=== PATIENT | female | born 1960 | race Caucasian/White ===

== ENCOUNTER 2016-07-23 09:01 | Outpatient (CLI) | payer OTHER ==
[~2016-07-23 09:01] MED LIST: BISA5ECT2 PO; CYCL-405 PO; ELA25 PO; GABA300C PO; IBUP-1842 PO; LOVA10TA27 PO; METO25TA PO; OMEP40EC1 PO; OXYC1TAB PO; SERT50TA PO
== END 2016-07-23 19:50 | disposition home or self-care (01) ==
LOC: MRD 09:01
PROVIDERS: ATTEND Surgery
PROC: BW24ZZZ Computerized Tomography (CT Scan) of Chest and Abdomen (ICD-10-PCS; principal; 2016-07-23)
PROC: BW21ZZZ Computerized Tomography (CT Scan) of Abdomen and Pelvis (ICD-10-PCS; principal; 2016-07-23)
DX: K46.9 Unspecified abdominal hernia without obstruction or gangrene (principal)
CPT/HCPCS: 71250

== ENCOUNTER 2016-09-03 09:51 | Outpatient (CLI) | payer OTHER | END 2016-09-03 21:00 | disposition home or self-care (01) | LOC: MRD 09:51 | PROVIDERS: ATTEND Surgery | DX: R10.9 Unspecified abdominal pain (principal); R14.0 Abdominal distension (gaseous) | CPT/HCPCS: 74249 ==

== ENCOUNTER 2018-02-24 11:54 | Inpatient (IN) | payer OTHER ==
[~2018-02-24] VITALS: Ht 157.5 cm; Wt 98.9 kg
[2018-02-24 12:26] VITALS: BP 92/51
--- NOTE | 2018-02-24 12:42 | NUR ---
PT TAKEN IN WHEELCHAIR TO ER BED 03
--- NOTE | 2018-02-24 12:50 | NUR ---
c/o n/v/d x 3 days----generalized weakness hx----umbilical hernia, dm, htn, wound right ribs (mrsa), esophageal ca (remission) rx----colace, elavil, metformin, gabapentin, norco, losartan, simvastatin, paxil, meloxicam, zantac, baclofen, buspirone,
[2018-02-24] MEDS ORDERED: NACL 0.9% 1,000 ML IV SCH (13:16)
[2018-02-24] MEDS ORDERED: NACL 0.9% 1,000 ML IV ONE (13:16)
[2018-02-24] MEDS ORDERED: ONDANSETRON 4 MG/2 ML VIAL IVP ONE (13:20)
[2018-02-24] MEDS ORDERED: MORPHINE SULFATE 2 MG/ML SYR IVP ONE (13:20)
[2018-02-24] MEDS ORDERED: DIPHENOXYLATE /ATROPINE 2.5 MG TAB PO ONE (13:20)
[2018-02-24] MEDS ORDERED: MORPHINE SULFATE 4 MG/ML SYR ONE (13:38)
--- NOTE | 2018-02-24 13:40 | NUR ---
PATIENT TAKEN TO CT.
[2018-02-24 13:49] LABS: BASOPHILS % (AUTO) 0.2 % (0.0-2.0); EOSINOPHILS # (AUTO) 0.1 K/uL (0-0.4); EOSINOPHILS % (AUTO) 0.7 % (0.0-4.0); HEMATOCRIT 45.1 % (36-48); HEMOGLOBIN 14.7 g/dL (12.0-16.0); LYMPHOCYTES # (AUTO) 1.7 K/uL (2.5-16.5); LYMPHOCYTES % (AUTO) 18.1 % (20.5-51.1); MEAN CORPUSCULAR HEMOGLOBIN 30 pg (27-31); MEAN CORPUSCULAR HGB CONC 33 g/dL (33-37); MEAN CORPUSCULAR VOLUME 90.4 fL (80-94); MONOCYTES # (AUTO) 1.1 K/uL (0.8-1.0); MONOCYTES % (AUTO) 11.9 % (1.7-9.3); NEUTROPHILS # (AUTO) 6.5 K/uL (1.8-7.7); NEUTROPHILS % (AUTO) 69.1 % (42.2-75.2); PLATELET COUNT (AUTO) 369 K/uL (140-450); RED BLOOD CELL COUNT(AUTO) 4.98 MIL/uL (4.20-5.40); WHITE BLOOD COUNT (AUTO) 9.5 K/uL (4.8-10.8)
--- NOTE | 2018-02-24 13:50 | NUR ---
PATIENT RETURN FROM CT.
[2018-02-24 14:00] LABS: ACETONE, SERUM NEGATIVE (NEGATIVE)
--- NOTE | 2018-02-24 14:05 | NUR ---
PATIENT UNABLE TO PRODUCE URINE AT THIS TIME.
[2018-02-24 14:06] LABS: PROTHROMBIN TIME 10.2 secs (10.8-13.4)
[2018-02-24 14:07] LABS: ALBUMIN 3.8 g/dL (3.4-5.0); AMYLASE 99 U/L (25-115); ANION GAP 16.8 (8-16); ASPARTATE AMINOTRANSFERASE 31 U/L (15-37); CHLORIDE 96 mmol/L (98-107); CREATININE 2.6 mg/dL (0.6-1.3); GFR ARICAN-AMERICAN 24 mL/min (>90); GLUCOSE 169 mg/dL (74-106); LIPASE 53 U/L (73-393); MAGNESIUM 1.7 mg/dL (1.8-2.4); POTASSIUM 3.8 mmol/L (3.5-5.1); SODIUM SERUM 135 mmol/L (136-145); TOTAL BILIRUBIN 0.4 mg/dL (0.0-1.0); UREA NITROGEN, BLOOD 34 mg/dL (7-18)
[2018-02-24] MEDS ORDERED: LOSA100T1 PO ×2 (15:43→16:22)
[2018-02-24] MEDS ORDERED: BACL20TA4 PO (15:43)
[2018-02-24] MEDS ORDERED: METF1000 PO (15:43)
[2018-02-24] MEDS ORDERED: HYDR-5092 PO (16:22)
[2018-02-24] MEDS ORDERED: MELO15TA11 PO (16:22)
[2018-02-24] MEDS ORDERED: RANI150C PO (16:22)
[2018-02-24] MEDS ORDERED: SIMV10TA1 PO (16:22)
[2018-02-24] MEDS ORDERED: PAX20 PO (16:22)
[2018-02-24] MEDS ORDERED: DOCU100C16 PO (16:22)
[2018-02-24] MEDS ORDERED: BUS5 PO (16:22)
[2018-02-24] MEDS: DEXT 5% / NACL 0.45% 1,000 ML IV SCH (16:57)
[2018-02-24] MEDS ORDERED: LORazepam 2 MG/ML VIAL IVP PRN (17:00)
[2018-02-24] MEDS ORDERED: DEXTROSE 50% 50 ML SYR IVP PRN (17:00)
[2018-02-24 17:06] LABS: APPEARANCE,URINE SLIGHTLY HAZY (CLEAR); BILIRUBIN,URINE NEGATIVE (NEGATIVE); BLOOD, URINE NEGATIVE (NEGATIVE); COLOR,URINE YELLOW (YELLOW); LEUKOCYTE ESTERASE ,URINE 2+ (NEGATIVE); NITRITE, URINE NEGATIVE (NEGATIVE); UGLUCOSE NEGATIVE (NEGATIVE)
[2018-02-24 17:08] LABS: RBC,URINE NONE SEEN /HPF (0-5); WBC,URINE 6-15 (FEW) /HPF (0-5)
--- NOTE | 2018-02-24 17:40 | NUR ---
Patient will be admitted to care of Dr Philip. Admited to M/S. Will go to room 112b. Belongings list completed. Report to SANDER Fuchs.
[2018-02-24 18:00] VITALS: BP 118/56
[2018-02-24] MEDS: BLOOD GLUCOSE MONITORING 1 DEV DEV FS SCH (18:00)
--- NOTE | 2018-02-24 19:00 | NUR ---
RECEIVED BEDSIDE REPORT FROM AM SHIFT WHO RECEIVED FROM ER PT ADMITTED AT THE UNIT AT 1745H. PATIENT MST. ALERT, AWAKE AND ORIENTED X4. AMBULATORY. PT HAS IV ON LEFT AC G 20 INFUSING WELL AND PATENT. PATIENT NOT IN RESPIRATORY DISTRESS, BUT PT C/O OF PAIN ON UMBILICAL AREA. SKIN ASSESSMENT DONE NOTED UNHEALED WOUND FROM S/P CHOLECYSTECTOMY PREVIOUSLY. WILL CONTINUE TO MONITOR
--- NOTE | 2018-02-24 19:30 | NUR ---
INFORMED THAT LACTIC ACID IS 2.4.ACKNOWLEDGED AND ORDERS CARRIED OUT
[2018-02-24] MEDS: MORPHINE SULFATE 4 MG/ML SYR IVP PRN (20:23)
--- NOTE | 2018-02-24 20:23 | NUR ---
PT GIVE PAIN MEDS C/O 01/25 PAIN. WILL REASSESS.
[2018-02-24] MEDS ORDERED: PIPERACILLIN/TAZOBACTAM 2.25 GM in DEXTROSE 5% 50 ML IV SCH (21:00)
--- NOTE | 2018-02-24 21:23 | NUR ---
PAIN REASSESSMENT DONE
[2018-02-24] MEDS: PIPER/TAZO 2.25GM/D5W PREMIX 50 ML IV SCH (21:45)
--- NOTE | 2018-02-25 | NUR ---
ASKED DR. MITCHELL; JACKELINO, AWAITING DR. LEUNG.
[2018-02-25] MEDS: DEXT 5% / NACL 0.45% 1,000 ML IV SCH ×3 (01:09→14:12)
--- NOTE | 2018-02-25 02:00 | NUR ---
SLEEPING.NO PAIN AND DISTRESS AT THIS TIME. WILL CONTINUE TO MONITOR
[2018-02-25 04:00] VITALS: BP 119/60
[2018-02-25] MEDS: PIPER/TAZO 2.25GM/D5W PREMIX 50 ML IV SCH ×3 (05:10→23:33)
[2018-02-25] MEDS: BLOOD GLUCOSE MONITORING 1 DEV DEV FS SCH ×5 (05:13→23:40)
[2018-02-25 06:46] LABS: BASOPHILS % (AUTO) 0.4 % (0.0-2.0); EOSINOPHILS # (AUTO) 0.3 K/uL (0-0.4); EOSINOPHILS % (AUTO) 4.4 % (0.0-4.0); HEMATOCRIT 36.5 % (36-48); HEMOGLOBIN 12.1 g/dL (12.0-16.0); LYMPHOCYTES # (AUTO) 1.6 K/uL (2.5-16.5); LYMPHOCYTES % (AUTO) 25.1 % (20.5-51.1); MEAN CORPUSCULAR HEMOGLOBIN 30 pg (27-31); MEAN CORPUSCULAR HGB CONC 33 g/dL (33-37); MEAN CORPUSCULAR VOLUME 90.3 fL (80-94); MONOCYTES # (AUTO) 0.8 K/uL (0.8-1.0); MONOCYTES % (AUTO) 12.2 % (1.7-9.3); NEUTROPHILS # (AUTO) 3.7 K/uL (1.8-7.7); NEUTROPHILS % (AUTO) 57.9 % (42.2-75.2); PLATELET COUNT (AUTO) 248 K/uL (140-450); RED BLOOD CELL COUNT(AUTO) 4.04 MIL/uL (4.20-5.40); RED CELL DISTRIBUTION WIDTH 13.7 % (11.6-13.7); WHITE BLOOD COUNT (AUTO) 6.4 K/uL (4.8-10.8)
[2018-02-25] MEDS: MORPHINE SULFATE 4 MG/ML SYR IVP PRN ×2 (07:13→23:29)
--- NOTE | 2018-02-25 07:35 | NUR ---
PT ENDORSED TO AM NURSE. TO FF. UP LOW MG. PT IN STABLE CONDITION. NO SIGNS OF DISTRESS
--- NOTE | 2018-02-25 07:38 | NUR ---
RECEIVED REPORT FROM RULES EXAMINER RN. PT IN STABLE CONDITION. REPORTS 4/10 TOLERABLE ABD PAIN, RECEIVED MORPHINE IVP AT 0715. DENIES NAUSEA/VOMITING/DIZZINESS AT THIS TIME. SMALL OPEN WOUND AT RT LATERAL ABDOMEN, COVERED WITH DRY AND CLEAN DRESSING. SCANT CLEAR DRAINAGE NOTED. PT IS AMBULATORY WITH ASSIST. IV SITE PATENT AND ASYMPTOMATIC, INFUSING IVF PER MD ORDERS. STRICT I&O. INSTRUCTED PT TO CALL IF SHE WISHES TO HAVE BM, WE STILL NEED TO COLLECT STOOL SAMPLE. UPDATED BOARD AND EXPLAINED POC. PT VERBALIZED COMPLETE UNDERSTANDING. ALL SAFETY PRECAUTIONS IN PLACE, WILL CONTINUE TO MONITOR.
[2018-02-25 08:00] VITALS: BP 120/67
[2018-02-25 08:05] LABS: ALBUMIN 2.9 g/dL (3.4-5.0); CARBON DIOXIDE 26.4 mmol/L (21-32); CREATININE 1.1 mg/dL (0.6-1.3); POTASSIUM 3.4 mmol/L (3.5-5.1); TOTAL BILIRUBIN 0.4 mg/dL (0.0-1.0)
[2018-02-25] MEDS: ENOXAPARIN 30 MG/0.3 ML SYR SUBQ SCH (08:55)
[2018-02-25] MEDS ORDERED: ENOXAPARIN 40 MG/0.4 ML SYR SUBQ SCH (09:00)
[2018-02-25] MEDS: ONDANSETRON 4 MG/2 ML VIAL IVP PRN (09:05)
--- NOTE | 2018-02-25 09:05 | NUR ---
PT C/O NAUSEA. DENIES VOMITING. ADMINISTERED ZOFRAN IVP PER MD ORDERS. WILL CONTINUE TO MONITOR.
--- NOTE | 2018-02-25 09:24 | NUR ---
NOTIFIED DR. EDWARDS THAT MAGNESIUM IS 1.7 AND POTASSIUM IS 3.4.
--- NOTE | 2018-02-25 09:32 | NUR ---
PATIENT HAS BEEN SCREENED AND CATEGORIZED HIGH NUTRITION RISK. PATIENT WILL BE SEEN WITHIN 1-2 DAYS OF ADMISSION. 02/25/18-02/26/[address]
[2018-02-25] MEDS ORDERED: KCL 20 MEQ/WATER INJ PREMIX 100 ML IV SCH (10:00)
--- NOTE | 2018-02-25 10:05 | NUR ---
PT DENIES NAUSEA AND VOMITING, ONE HOUR AFTER ZOFRAN IVP.
[2018-02-25] MEDS ORDERED: KCL 20 MEQ/WATER INJ PREMIX 100 ML IV ONE (10:15)
--- NOTE | 2018-02-25 10:29 | NUR ---
RADIOLOGY HERE TO TAKE PT FOR ABD X-RAY.
[2018-02-25] MEDS ORDERED: MAG SULF 2000 MG/WATER PREMIX 50 ML IV SCH (10:30)
--- NOTE | 2018-02-25 10:33 | NUR ---
DR. LEUNG CALLED REGARDING PATIENT. UPDATED DR. LEUNG ON LABS, PT CONDITION, AND ABD CT SCAN RESULTS. DR. LEUNG SAYS HE WILL COME SEE PATIENT LATER TODAY.
--- NOTE | 2018-02-25 11:52 | NUR ---
SLOWED DOWN RATE OF K RIDER TO 25ML/HR. PT COMPLAINING OF BURNING PAIN AT IV SITE. INSTRUCTED PT TO USE CALL LIGHT IF BURNING DOES NOT SUBSIDE
--- NOTE | 2018-02-25 12:07 | NUR ---
PT CONTINUES TO COMPLAINT OF BURNING PAIN AT IV SITE FROM K RIDER INFUSION. SET UP NS TO RUN ALONG WITH K RIDER. WILL CONTINUE TO MONITOR.
[2018-02-25] MEDS: ACETAMINOPHEN 325 MG TAB PO PRN (14:05)
--- NOTE | 2018-02-25 14:09 | NUR ---
HELPED PT AMBULATE TO BATHROOM. DENIES DIZZINESS, NAUSEA, VOMITING AT THIS TIME. GAIT IS EVEN AND STEADY, WITHOUT ASSIST.
--- NOTE | 2018-02-25 14:26 | NUR ---
02/25/18 RD INITIAL ASSESSMENT COMPLETED PLEASE REFER TO NUTRITION ASSESSMENT UNDER CARE ACTIVITY FOR ESTIMATED NUTRITIONAL NEEDS. RD RECOMMENDATIONS: 1. CONTINUE NPO MEDICALLY APPROPRIATE. 2.IF/WHEN PT IS MEDICALLY STABLE TO INITIATE NUTRITION, CONSIDER CLEAR LIQUID DIET AND ADVANCE TOLERATED TO CCHO 60 GM AND 2 GM NA DIET D/T PT WITH PMH OF DM AND HTN. 3. RD PROVIDED VERBAL AND WRITTEN NUTRITION EDUCATION ON DM AND LOW SODIUM DIET TO PT AND PTS . 4. RD WILL F/U 2-3 DAYS; HIGH RISK. EFREN HOWELL RD
--- NOTE | 2018-02-25 15:28 | NUR ---
ADMINISTERED MAG BARNARD PER DR. REEDER.
[2018-02-25 16:00] VITALS: BP 114/45
[2018-02-25] MEDS ORDERED: MIDAZOLAM 2 MG/2 ML VIAL ONE (18:16)
[2018-02-25] MEDS ORDERED: fentaNYL 0.05 MG/ML VIAL ONE (18:17)
--- NOTE | 2018-02-25 18:21 | NUR ---
PER EDUCATIONAL INTERPRETER LETITIA, OR TOOK PT FOR SURGERY 5 MINUTES AGO.
[2018-02-25] MEDS ORDERED: SUCCINYLCHOLINE CHLORIDE 200 MG/10 ML VIAL IVP ONE (18:32)
[2018-02-25] MEDS ORDERED: LIDOCAINE 2% 100 MG/5 ML SYR IVP ONE (18:32)
[2018-02-25] MEDS ORDERED: DEXAMETHASONE 4 MG/ML VIAL ONE (18:32)
[2018-02-25] MEDS ORDERED: ONDANSETRON 4 MG/2 ML VIAL ONE (18:32)
[2018-02-25] MEDS ORDERED: ROCURONIUM 50 MG/5 ML VIAL IV ONE (18:32)
[2018-02-25] MEDS ORDERED: DESFLURANE 240 ML BTL INH ONE (18:32)
[2018-02-25] MEDS ORDERED: KETOROLAC 30 MG/ML VIAL ONE (18:32)
[2018-02-25] MEDS ORDERED: PROPOFOL 200 MG/20 ML VIAL IV ONE (18:32)
[2018-02-25] MEDS ORDERED: ONDANSETRON 4 MG/2 ML VIAL IVP PRN (19:00)
[2018-02-25] MEDS ORDERED: HYDROmorphone 1 MG/ML AMP IVP PRN (19:00)
--- NOTE | 2018-02-25 19:29 | NUR ---
ENDORSED POC TO VP SOFTWARE RN. PT IN SURGERY NOW.
[2018-02-25] MEDS ORDERED: BLOOD GLUCOSE MONITORING 1 DEV DEV FS SCH (19:30)
--- NOTE | 2018-02-25 21:30 | NUR ---
PER FLORESITA BOUCHER FROM [facility] PT WILL COME TO ICU FROM OR. REPORT GIVEN THAT PT IS UNDER CARE OF AND WITH CHIEF C/O ABD PAIN,NAUSEA/VOMITING. PT IS SURGERY FOR OPEN REPAIR VENTRAL HERNIA,POSSIBLE EXPLORATOMY LAPARATOMY,POSSIBLE BOWEL RESECTION AND POSSIBLE OSTOMY BY DR LEUNG. PER REPORT PT WAS ALERT ORIENTED X3 BEFORE GOING TO SURGERY, PT WAS REFUSING FLUE AND PNA VACCINE. NO BELONGING PER REPORT.NO F/C AT [facility].PT WAS CONTINENT AND ABLE TO AMBULATE WITH ASSIST. PT STILL AT OR AT THIS TIME.
--- NOTE | 2018-02-25 23:00 | NUR ---
PATIENT ARRIVED AT ICU-2 AT 2300 WITH NURSE BAGGING AT BEDSIDE. PATIENT PLACED ON VENT SETTINGS AC 450, 12, 24%, +5. DR. LEUNG IN AGREEMENT. ETT 7.5 AND 23CM AT THE TEETH. ETT PATENT AND SECURE. VITALS STABLE:100%, PULSE 89, RATE 20. BILATERAL AND EQUAL CLEAR BREATH SOUNDS. VENT PLUGGED INTO RED OUTLET. ALARMS ON AND AUDIBLE. AMBU BAG AT BEDSIDE. PATIENT ALERT AND RESPONSIVE. NURSE MELVIN AT BEDSIDE.
--- NOTE | 2018-02-25 23:00 | NUR ---
PT WAS BROUGHT BY HOSPITAL BED WITH OR STAFF, PT WAS INTUBATED AND BAGGING BY STAFF DURING TRANSFER, DR. ELLINGTON AND AT BED SIDE. PT IS ALERT ABLE TO NODDING FOR YES FOR SIMPLE QUESTION. PT IS S/P OPEN REPAIR MULTIPLE VENTRAL HERNIA (EX- LAP WITH ALESSANDRO AND REPAIR VENTRAL HERNIA )PER MD TO PUT PT ON VENTILATOR, PT WAS CONNECT TO VENT BY RT.SUCTION WAS GIVEN NO SOB AT THIS TIME,PT NOTED WITH ABD DRESSING AND ESTELA DRAIN WITH BRIGHT RED DRAINAGE ABOUT 30 CC,IV NS HALF BAG FROM OR, PER PEÑA BOUCHER IT WAS THE 3RD BAG OF NS,F/C IS IN PLACE WITH YELLOW CLEAR URINE.PER DR ELLINGTON EBL ABOUT 400 CC, URINE ABOUT 300 CC.AND PER AND MAY TO DECANULATE PT IF PT ALREADY STABLE AND FULLY AWAKE,AND TO NOTIFY DR.CHANG GUEVARA.CONTINUE TO MONITOR PT CLOSELY. Addendum: 02/26/18 at 0124 by Annamarie Lerma RN PER AND MAY EXTUBATED PT WHEN PT IS READY NOT DECANULATED.
[2018-02-25 23:15] VITALS: BP 142/67
--- NOTE | 2018-02-25 23:29 | NUR ---
PT IS RESTLESS, MOANING AND CRYING, WHEN ASKING IF SHE IS IN PAIN SHE SAID YES, PT UN ABLE TO SAID PAIN SCALE D/T ETT IN PLACE, WHEN ASKING IF SHE IS IN SEVERE PAIN SHE NODDING HER HEAD VERY HARD, AND SHE LOOK CRYING. PRN MORPHINE GIVEN ORDER FOR PAIN.HOB UP 30-45 DEGREES.CONTINUE TO MONITOR CLOSELY.
[2018-02-25] MEDS ORDERED: MORPHINE SULFATE 4 MG/ML SYR ONE (23:31)
[2018-02-25] MEDS ORDERED: POTASSIUM CHL 20 MEQ/D5-1/2NS 0 ML IV ONE (23:42)
[2018-02-25] MEDS: INSULIN LISPRO SLIDING SCALE 100 UNITS/ML VIAL SUBQ PRN (23:44)
[2018-02-25 23:45] VITALS: BP 116/65
[2018-02-25] MEDS ORDERED: POTASSIUM CHL 20MEQ/D5-NS 1,000 ML IV ONE (23:45)
[2018-02-25] MEDS: POTASSIUM CHL 20MEQ/D5-NS 1,000 ML IV SCH (23:45)
--- NOTE | 2018-02-25 23:50 | NUR ---
PT WAS EXTUBATED AT 2345 D/T PT HAVING DISTRESS,PT WAS KEEP BITE THE ETT, PT DENIES PAIN,WHEN ASKING IF THE TUBING BOTHER HER, PT GIVE SIGN FOR YES,AND KEPT TRYING TO REMOVE THE ETT. PT HAS X3 VOMITING GREENISH COLOR D/T UNCOMFORTABLE WITH THE ETT, RT AT BED SIDE. PT IS FULLY AWAKE AT THIS TIME. RT EXTUBATED PT SUCCESSFULLY.PT NO DISTRESS, AND ON 40 % O2 VIA AEROSOL.DR.CHANG GUEVARA MADE AWARE.
--- NOTE | 2018-02-25 23:50 | NUR ---
PATIENT IN APPARENT DISTRESS AND TRYING TO BITE ET TUBE. VOMITED X3 NEON GREEN. SUCTIONED MOUTH FOR EMESIS AND DEEP TRACHEAL SUCTIONED WITH NO SECRETIONS RETURNED. ASKED IF SHE WAS IN PAIN AND SHE SHOOK HER HEAD "NO." WHEN I ASKED IF THE ET TUBE WAS THE PROBLEM, SHE VIGOROUSLY NODDED "YES." PATIENT REPEATEDLY ATTEMPTED TO SELF-EXTUBATE. PATIENT WAS ASSURED SHE WOULD BE EXTUBATED AND TO REMAIN CALM. PERFORMED SBT ON CPAP WITH PRESSURE SUPPORT OF 5 AND PATIENT RETURNED ADEQUATE SPONTANEOUS VOLUMES OF 430ML TO 520ML. EXTUBATED WITH NO INCIDENT AND PLACED PATIENT ON 6L HUMIDIFIED AEROSOL OF 40%. VITALS STABLE: 96%, PULSE 79, RATE OF 16. GOOD CHEST RISE AND CLEAR BILATERAL BREATH SOUNDS ARE PRESENT. PATIENT NOW RESTING CALMLY. ORDERED ABG FOR 0700 ON 02/26/18.
[2018-02-26] VITALS (11 sets, daily range): BP systolic 101–127; BP diastolic 59–78
--- NOTE | 2018-02-26 00:10 | NUR ---
PT IS POST EXTUBATED AND PT LOOK CALM ASK PT IF SHE STILL ON PAIN, SHE DENIES PAIN AT THIS TIME.
--- NOTE | 2018-02-26 00:13 | NUR ---
DR.CHANG GUEVARA AWARE PT IS POST OP. MADE AWARE PUT ORDER IV DEX 5 % IN NACL WITH POTASSIUM AT 150 CC/HR PER TO D/C PREVIOUS ORDER OF IVF, ORDER WAS NOTED AND CARRIED OUT. ALSO NEW ORDER ABG AT 7 AM,AND CONTINUE LAB ORDER OF CBC BMP AND MAG TODAY.SHIKHA RT REPORTING THAT PT ALREADY DECANULATED AT 2345 AND TOLERATING WELL AT THIS TIME.CONTINUE TO MONITOR CLOSELY. Addendum: 02/26/18 at 0125 by Annamarie Lerma RN PT WAS EXTUBATE AT 2345 NOT DECANULATED.
--- NOTE | 2018-02-26 01:26 | NUR ---
PT SLEEP WELL AT THIS TIME, NO S/S OF RESP DISTRESS,NO SOB. NO C/O PAIN AT THIS TIME.CONT TO MONITOR CLOSELY.
--- NOTE | 2018-02-26 01:36 | NUR ---
PT KEPT OPEN THE O2 MASK, PER PT SHE CANNOT BREATHE WITH IT MAKE HER FEEL SCARE, PT IS ALERT ORIENTED X4, SPEAK CLEARLY, NO S/S OF RESP DISTRESS OR SOB . SPO2 95% AT THIS TIME, RT MADE AWARE AND CHANGE PT TO O2 AT 2 LPM VIA N/C AND TOLERATING WELL.PT SAID ITS FEEL MUCH BETTER.
--- NOTE | 2018-02-26 01:36 | NUR ---
PATIENT STATED TO NURSE THAT THE AEROSOL MASK WAS NOT TOLERABLE. PLACED PATIENT ON 2L NASAL CANNULA WITH BUBBLE HUMIDIFIER. VITALS STABLE: PULSE 75, RATE 16, 97% ON 2L. BREATH SOUNDS CLEAR AND EQUAL BILATERALLY. PATIENT IS WELL ORIENTED AND COMMUNICATES CLEARLY.
[2018-02-26] MEDS ORDERED: HYDROmorphone 1 MG/ML AMP ONE (01:59)
--- NOTE | 2018-02-26 03:00 | NUR ---
PT SLEEP WELL
[2018-02-26] MEDS: PIPER/TAZO 2.25GM/D5W PREMIX 50 ML IV SCH ×3 (05:15→20:36)
[2018-02-26] MEDS: INSULIN LISPRO SLIDING SCALE 100 UNITS/ML VIAL SUBQ PRN ×3 (05:18→23:46)
[2018-02-26] MEDS: BLOOD GLUCOSE MONITORING 1 DEV DEV FS SCH ×4 (05:19→23:35)
[2018-02-26 05:27] LABS: HEMATOCRIT 34.4 % (36-48); HEMOGLOBIN 11.2 g/dL (12.0-16.0); MEAN CORPUSCULAR HEMOGLOBIN 30 pg (27-31); MEAN CORPUSCULAR HGB CONC 33 g/dL (33-37); MEAN CORPUSCULAR VOLUME 91.6 fL (80-94); PLATELET COUNT (AUTO) 235 K/uL (140-450); RED BLOOD CELL COUNT(AUTO) 3.76 MIL/uL (4.20-5.40); RED CELL DISTRIBUTION WIDTH 13.7 % (11.6-13.7); WHITE BLOOD COUNT (AUTO) 9.5 K/uL (4.8-10.8)
--- NOTE | 2018-02-26 05:27 | NUR ---
PT IS AWAKE,ALERT,ORIENTED X4. NO S/S OF RESP DISTRESS,NO SOB.CONT ON O2 AT 2LP VIA NASAL CANULA.HOB UP 30-45 DEGREES. SKIN WARM TO TOUCH. ABLE TO HELP DURING REPOSITION. AM CARE GIVEN. PT ABLE TO CLEAN HER SELF. NO C/O PAIN AT THIS TIME. BLOOD TEST DRAWN. BLOOD SUGAR IS 171 AND 2 UNITS INSULIN GIVEN. GENTLE CARE GIVEN.KEPT CLEAN AND DRY.CALL LIGHT IN REACH.
[2018-02-26 05:30] LABS: ANION GAP 5.7 (8-16); CARBON DIOXIDE 30.3 mmol/L (21-32); CREATININE 0.8 mg/dL (0.6-1.3)
[2018-02-26 05:42] LABS: LYMPHOCYTES % (MANUAL) 9 % (20-46); MONOCYTES % (MANUAL) 9 % (5-12)
[2018-02-26] MEDS ORDERED: POTASSIUM CHL 20MEQ/D5-NS 1,000 ML IV ONE (06:34)
--- NOTE | 2018-02-26 07:07 | NUR ---
RECEIVED BEDSIDE REPORT FROM CLINICAL RESEARCH ADMINISTRATOR RN, MELVIN, FOR CONTINUITY OF CARE. PATIENT IS AAOX4, ABLE TO MAKE NEEDS KNOWN, ABLE TO FOLLOW COMMANDS. PATIENT SKIN IS NOT INTACT, POST S/P OPEN REPAIR MULTIPLE VENTRAL HERNIA, DRESSING CLEAN AND DRY. SHE HAS PERIPHERAL IV SITE TO LEFT AC, 20 GAUGE, ASYMPTOMATIC, PATENT. PATIENT IS ON 2LPM ON NASAL CANNULA, BREATHING EVEN AND UNLABORED. PATIENT COMPLAINS OF 8/10 PAIN TO ABDOMEN, SR ON MONITOR. SHE IS NPO. PATIENT HAS TOMLINSON CATHETER IN PLACE. SAFETY PRECAUTIONS IN ASSESSED AND ENFORCED. NO SIGNS OF DISTRESS NOTED. CALL LIGHT WITHIN REACH. WILL CONTINUE TO MONITOR.
[2018-02-26] MEDS: MORPHINE SULFATE 4 MG/ML SYR IVP PRN ×3 (07:18→21:26)
[2018-02-26] MEDS: ONDANSETRON 4 MG/2 ML VIAL IVP PRN (07:33)
--- NOTE | 2018-02-26 07:35 | NUR ---
SPOKE WITH DR. BRUSH ON THE PHONE, UPDATED HIM ON PATIENT'S CONDITION, STATES THAT DR. CAMARGO WILL BE COMING IN TO SEE PATIENT
--- NOTE | 2018-02-26 08:01 | NUR ---
DR. CAMARGO IN TO SEE AND EXAMINE PATIENT, UPDATED ON PATIENT'S CONDITION. WILL FOLLOW UP ON ANY ORDERS.
[2018-02-26] MEDS: POTASSIUM CHL 20MEQ/D5-NS 1,000 ML IV SCH ×4 (08:04→23:41)
[2018-02-26] MEDS: ENOXAPARIN 30 MG/0.3 ML SYR SUBQ SCH (08:07)
--- NOTE | 2018-02-26 08:45 | NUR ---
PATIENT REMOVED SCD'S, EDUCATED ON USE OF SCD'S, PATIENT STATES THAT SHE WILL PUT BACK ON LATER, SHE JUST WANTS TO REST.
--- NOTE | 2018-02-26 09:01 | NUR ---
DR. EDWARDS IN TO SEE AND EXAMINE PATIENT, UPDATED ON PATIENT'S CONDITION. WILL FOLLOW UP ON ANY ORDERS.
--- NOTE | 2018-02-26 09:09 | NUR ---
PATIENT IS ON THE PHONE SPEAKING TO FAMILY, NO SIGNS OF DISTRESS NOTED.
[2018-02-26] MEDS ORDERED: PROBIOTIC SCREEN 1 EA MISC MC PRN (09:10)
--- NOTE | 2018-02-26 09:14 | NUR ---
SPOKE WITH DR. LEUNG ON THE PHONE, UPDATED ON PATIENT'S CONDITION. NO ORDERS RECEIVED AT THIS TIME.
--- NOTE | 2018-02-26 10:37 | NUR ---
ADMINISTERED ATIVAN PRN 1MG IVP, PATIENT ASKED FOR SOMETHING TO HELP RELAX. PATIENT TOLERATED WELL.
--- NOTE | 2018-02-26 12:38 | NUR ---
PATIENT'S AT BEDSIDE, UPDATED ON PATIENT'S CONDITION. NO SIGNS OF DISTRESS AT THIS TIME, DENIES ANY PAIN, SOB, NAUSEA OR VOMITING. WILL CONTINUE TO MONITOR.
--- NOTE | 2018-02-26 15:23 | NUR ---
ASSISTED PATIENT TO SIT ON THE SIDE OF THE BED, SAFETY PRECAUTIONS ASSESSED AND ENFORCED. PATIENT IS TOLERATING WELL, WILL CONTINUE TO MONITOR
--- NOTE | 2018-02-26 17:35 | NUR ---
PATIENT'S AT BEDSIDE, PATIENT COMPLAINS OF 8/10 PAIN, ADMINISTERED PRN MORPHINE 4MG IVP, PATIENT TOLERATED WELL. WILL CONTINUE TO MONITOR
--- NOTE | 2018-02-26 18:50 | NUR ---
TRANSFERRED PATIENT TO [facility], VITAL SIGNS STABLE, NO SIGNS OF DISTRESS NOTED. ENDORSED CONTINUITY OF CARE TO [facility] V BELT MOLD ASSEMBLER AND CURER.
--- NOTE | 2018-02-26 19:10 | NUR ---
RECEIVED REPORT FROM RAJANI QUIROGA, AT PT BEDSIDE. PT IN STABLE CONDITION. PT AT BEDSIDE. PT IS AAOX4. PT IS ON RA. RESPIRATIONS EVEN AND UNLABORED. IV ACCESS IN L AC 20G WITH IVF RUNNING PER MD ORDERS. IV IS PATENT AND INTACT. PT IS POST OPEN REPAIR MULTIPLE VENTRAL HERNIAS. PT HAS INCISION FROM UPPER TO LOWER ABDOMEN COVERED WITH DRY AND INTACT DRESSING. PT HAS ESTELA DRAIN PLACED IN LLQ. TOMLINSON CATHETER IN PLACE. PT REQUESTING TO HAVE SCDS TAKEN OFF AT THIS TIME. BED IS LOCKED, LOW POSITION WITH SIDE RAILS UP X2. BOARD UPDATED. CALL LIGHT WITHIN REACH. WILL CONTINUE TO MONITOR PT.
[2018-02-26] MEDS: ACETAMINOPHEN 325 MG TAB PO PRN (20:35)
[2018-02-26] MEDS: AMITRIPTYLINE 25 MG TAB PO SCH (20:38)
--- NOTE | 2018-02-26 20:38 | NUR ---
ADMINISTERED SCHEDULED MEDICATIONS. PT C/O HEADACHE TYLENOL GIVEN. PT HAS NO SIGNS OR SYMPTOMS OF DISTRESS. WILL CONTINUE TO MONITOR.
--- NOTE | 2018-02-26 21:26 | NUR ---
PT C/O PAIN. MORPHINE GIVEN. PT TOLERATED WELL. WILL CONTINUE TO MONITOR.
--- NOTE | 2018-02-26 22:26 | NUR ---
PT NOW ASLEEP IN BED. NO SIGNS OR SYMPTOMS OF DISTRESS. WILL CONTINUE TO MONITOR.
--- NOTE | 2018-02-26 23:46 | NUR ---
STARTED NEW BAG OF IVF. BS CHECKED, 152. INSULIN COVERAGE GIVEN PER MD ORDERS. ALL OTHER PT NEEDS ARE MET AT THIS TIME. NO SIGNS OR SYMPTOMS OF DISTRESS. WILL CONTINUE TO MONITOR.
[2018-02-27] VITALS: BP 103/55
--- NOTE | 2018-02-27 01:46 | NUR ---
PT ASLEEP IN BED. NO SIGNS OR SYMPTOMS OF DISTRESS. WILL CONTINUE TO MONITOR.
[2018-02-27 04:00] VITALS: BP 121/62
[2018-02-27] MEDS: PIPER/TAZO 2.25GM/D5W PREMIX 50 ML IV SCH ×3 (04:27→21:14)
[2018-02-27] MEDS: ACETAMINOPHEN 325 MG TAB PO PRN ×3 (04:28→22:34)
[2018-02-27] MEDS: BLOOD GLUCOSE MONITORING 1 DEV DEV FS SCH ×3 (04:30→18:26)
--- NOTE | 2018-02-27 04:31 | NUR ---
ADMINISTERED SCHEDULED MEDICATION. PT C/O MILD PAIN AND REQUESTED TYLENOL, GIVEN. BS CHECKED, 147. NO COVERAGE NEEDED PER MD ORDERS. ALL OTHER PT NEEDS ARE MET AT THIS TIME. WILL CONTINUE TO MONITOR.
--- NOTE | 2018-02-27 05:26 | NUR ---
EMPTIED 20ML OF SEROSANGUINEOUS DRAINAGE FROM ESTELA DRAIN.
[2018-02-27 06:52] LABS: BASOPHILS % (AUTO) 0.2 % (0.0-2.0); EOSINOPHILS # (AUTO) 0.3 K/uL (0-0.4); EOSINOPHILS % (AUTO) 3.9 % (0.0-4.0); HEMATOCRIT 31.8 % (36-48); HEMOGLOBIN 10.6 g/dL (12.0-16.0); LYMPHOCYTES # (AUTO) 0.8 K/uL (2.5-16.5); LYMPHOCYTES % (AUTO) 8.6 % (20.5-51.1); MEAN CORPUSCULAR HEMOGLOBIN 30 pg (27-31); MEAN CORPUSCULAR HGB CONC 33 g/dL (33-37); MEAN CORPUSCULAR VOLUME 90.4 fL (80-94); MONOCYTES # (AUTO) 0.9 K/uL (0.8-1.0); MONOCYTES % (AUTO) 10.4 % (1.7-9.3); NEUTROPHILS # (AUTO) 6.8 K/uL (1.8-7.7); NEUTROPHILS % (AUTO) 76.9 % (42.2-75.2); PLATELET COUNT (AUTO) 218 K/uL (140-450); RED BLOOD CELL COUNT(AUTO) 3.52 MIL/uL (4.20-5.40); RED CELL DISTRIBUTION WIDTH 13.5 % (11.6-13.7); WHITE BLOOD COUNT (AUTO) 8.8 K/uL (4.8-10.8)
--- NOTE | 2018-02-27 07:03 | NUR ---
ENDORSED PLAN OF CARE TO DAY SHIFT NURSE FOR CONTINUITY OF CARE. PT IN STABLE CONDITION.
--- NOTE | 2018-02-27 07:30 | NUR ---
RECEIVED PT AAOX4. NO SOB NOTED. NO C/O PAIN AT THIS TIME. IV TO LT AC PATENT AND INTACT. CHEST, DIMINISHED AIR ENTRY TO THE BASES, OTHERWISE CLEAR. ABDOMEN SOFT, BOWEL SOUNDS PRESENT. WITH ABDOMINAL SURGICAL INCISION NOTED, S/P OPEN REPAIR MULTIPLE VENTRAL HERNIAS 02/25/2018, DRESSING DRY AND INTACT. LT LEFT ABD ESTELA DRAIN WITH SMALL AMOUNTS OF SEROSANG DRAINAGE. WITH TOMLINSON DRAINING MODERATE AMOUNTS OF CLEAR YELLOW URINE. INSTRUCTED PT TO CALL FOR ASSISTANCE, CALL LIGHT WITHIN REACH, PT VERBALIZED UNDERSTANDING.
[2018-02-27 08:00] VITALS: BP 132/65
[2018-02-27] MEDS: ONDANSETRON 4 MG/2 ML VIAL IVP PRN ×2 (08:32→15:51)
[2018-02-27] MEDS: MORPHINE SULFATE 4 MG/ML SYR IVP PRN (08:36)
[2018-02-27] MEDS: ENOXAPARIN 30 MG/0.3 ML SYR SUBQ SCH (08:39)
--- NOTE | 2018-02-27 08:45 | NUR ---
TOMLINSON CATHETER DISCONTINUED ORDERED. DRAINED 300 MLS OF CLEAR YELLOW URINE. PT TOLERATED PROCEDURE WELL.
[2018-02-27] MEDS: POTASSIUM CHL 20MEQ/D5-NS 1,000 ML IV SCH ×2 (11:23→23:30)
--- NOTE | 2018-02-27 11:30 | NUR ---
PT VOIDED TO THE BATHROOM FREELY, FIRST VOID AFTER TOMLINSON IS D/C'D. ACTIVITY TOLERATED WELL.
--- NOTE | 2018-02-27 11:55 | NUR ---
WOUND CARE NOTE: SPOKE TO PRIMARY RN AND WAS TOLD NO WOUND CONSULT TO S/P ABDOMEN SURGICAL WOUND. SURGEON HAS NOT MADE THE INITIAL VISIT YET. SPOKE TO PT. AND PT SAID SHE HAS NOT YET SEEN DR. LEUNG AFTER THE SURGERY, DRESSING CLEAN DRY AND IN PLACE TO ABDOMINAL DRESSING. PT IS AAX4. HOWEVER, PT HAS AN OLD UNHEALED SURGICAL WOUND TO RIGHT POSTERIOR LATERAL THORACIS AREA, OLD SURGICAL SCAR WITH ONE OPEN WOUND. PT EXPLAINED HX OF THE WOUND AND IT HAS NOT PROPERLY HEALED FOR MONTHS AND PER PT. DR. LEUNG IS AWARE OF IT. INTEGUMENTARY: -CHRONIC WOUND TO RIGHT POSTERIOR LATERAL THORACIS AREA, 1X1.5X0.5CM, WOUND BED PINK, MODERATE AMOUNT SEROUS DRAINAGE , NO ODOR, PERIWOUND SKIN INTACT. -S/P ABDOMEN SURGICAL WOUND DRESSING DRY CLEAN AND IN PLACE WITH ESTELA DRAINAGE FUNCTIONING, WITH SMALL AMOUNT SEROSANGUINEOUS OBSERVED. RECOMMENDATIONS: -HOME HEALTH FOLLOW UP WITH WOUND CARE UPON DISCHARGED -CLEANSE CHRONIC WOUND TO RIGHT POSTERIOR LATERAL THORACIS AREA WITH NS, PAT DRY, APPLY ALGINATE DRESSING AND COVER WITH DRY DRESSING CHANGE QD AND PRN IF SOILING. -FOLLOW SURGEON ORDER TO ACUTE ABDMINAL WOUND CARE. -FOLLOW UP APPOINTMENT WITH SURGEON UPON DISCHARGED. -PRIMARY RN TO PROVIDE WOUND CARE TEACHING AND MAY DISCHARGE WOUND CARE SUPPLIES IF NO HOME HEALTH NURSE TO FOLLOW ALL ABOVE INFORMATION DISCUSSED WITH PRIMARY RN AND PT. PT VERBALIZES UNDERSTANDING.
[2018-02-27 12:00] VITALS: BP 116/69
[2018-02-27] MEDS ORDERED: ALGINATE DRESSING TP PRN (13:30)
--- NOTE | 2018-02-27 14:00 | NUR ---
PT SEEN BY DR. LEUNG WITH NEW ORDER.
--- NOTE | 2018-02-27 15:00 | NUR ---
PT STATED SHE HAD PASSED GAS. INSTRUCTED PT AMBULATE MORE. PT VERBALIZED UNDERSTANDING.
--- NOTE | 2018-02-27 15:35 | NUR ---
NAA FONTENOT RECEIVED ORDER FOR HOME HEALTH ORDER FOR HOME HEALTH FAXED TO [facility] [phone]. PER [facility] NAA FRAGOSO # [phone] EXT *[phone], SEND INQUIRY TO [facility] AND HE ALSO REQUESTED H&P, SURGERY REPORT, WOUND CARE NURSE NOTE, LIST OF MEDS BE FAXED TO [facility]. FAXED TO [facility]. FAXED INQUIRY TO [facility] [phone]. PER NURIS OF [facility]IOR[facility] ONE THEY ARE ACCEPTING THE PATIENT AND WILL HAVE A NURSE TO SEE PATIENT WHEN DISCHARGED FROM THE HOSPITAL. [facility] NAA BROOKS CHARGE NURSE TAYLER AWARE Addendum: 02/28/18 at 1026 by Columba Luis CM PER [facility]URIS OF [facility], DR. LEUNG HAS ALREADY INFORMED THEM PRIOR TO THE SURGERY THAT PATIENT WILL NEED HH AND THAT THEY HAVE ALREADY OBTAINED THE AUTHORIZATION PRIOR.
[2018-02-27] MEDS ORDERED: HYDROmorphone 1 MG/ML AMP IVP PRN (15:50)
[2018-02-27 16:00] VITALS: BP 139/71
--- NOTE | 2018-02-27 16:00 | NUR ---
PT SEEN BY DR. EDWARDS WITH ORDERS.
[2018-02-27] MEDS: oxyCODONE/APAP 5/325 MG 1 TAB TAB PO PRN (16:01)
--- NOTE | 2018-02-27 18:00 | NUR ---
LT ESTELA DRAINED 20 MLS OF SERO SANGUINOUS FLUIDS.
--- NOTE | 2018-02-27 19:15 | NUR ---
PT AWAKE, NO SOB NOTED. NO C/O PAIN AT THIS TIME. WILL ENDORSE TO NEXT SHIFT NURSE FOR CONTINUITY OF CARE.
--- NOTE | 2018-02-27 19:20 | NUR ---
RECEIVED REPORT FORM DAY SHIFT NURSE. PT LYING IN BED. AAOX4. NO C/O PAIN OR SOB. ON ROOM AIR. PT HAS ABDOMINAL DRESSING, CLEAN, DRY AND INTACT. ESTELA DRAIN ON LLQ. PT HAS DRESSING TO RIGHT UPPER BACK, CLEAN, DRY AND INTACT. IV TO LEFT AC #20G, PATENT AND INTACT. DISCUSSED PLAN OF CARE, PT VERBALIZED UNDERSTANDING. SAFETY PRECAUTION IN PLACE. CALL LIGHT WITHIN REACH.
[2018-02-27 20:00] VITALS: BP 119/54
[2018-02-27] MEDS: AMITRIPTYLINE 25 MG TAB PO SCH (21:14)
--- NOTE | 2018-02-27 22:34 | NUR ---
PT C/O HEADACHE 3/10 PAIN SCALE. TYLENOL 650 MG PO GIVEN.
[2018-02-28] VITALS: BP 126/68
--- NOTE | 2018-02-28 | NUR ---
BLOOD SUGAR CHECKED 129. NO INSULIN COVERAGE NEEDED. NO C/O PAIN.
[2018-02-28] MEDS: BLOOD GLUCOSE MONITORING 1 DEV DEV FS SCH ×2 (00:24→06:26)
--- NOTE | 2018-02-28 02:45 | NUR ---
PT SLEEPING BUT EASILY AROUSABLE. RESP EVEN AND UNLABORED. NO S/S OF PAIN OR DISCOMFORT.
[2018-02-28 04:00] VITALS: BP 131/64
[2018-02-28] MEDS: PIPER/TAZO 2.25GM/D5W PREMIX 50 ML IV SCH (04:46)
--- NOTE | 2018-02-28 05:15 | NUR ---
PT IN BED, AWAKE. NO C/O PAIN. ALL NEEDS MET AT THIS TIME. CALL LIGHT WITHIN REACH.
--- NOTE | 2018-02-28 06:00 | NUR ---
BS CHECKED 130. NO INSULIN COVERAGE NEEDED. ESTELA DRAIN SEROSANGUINEOUS 10 ML.
--- NOTE | 2018-02-28 07:00 | NUR ---
PT HAD BM X1. PT DENIES PAIN. NO RESP DISTRESS NOTED.
[2018-02-28 07:15] LABS: BASOPHILS % (AUTO) 0.2 % (0.0-2.0); EOSINOPHILS # (AUTO) 0.5 K/uL (0-0.4); EOSINOPHILS % (AUTO) 5.3 % (0.0-4.0); HEMATOCRIT 31.9 % (36-48); HEMOGLOBIN 10.4 g/dL (12.0-16.0); LYMPHOCYTES # (AUTO) 1.4 K/uL (2.5-16.5); LYMPHOCYTES % (AUTO) 14.8 % (20.5-51.1); MEAN CORPUSCULAR HEMOGLOBIN 29 pg (27-31); MEAN CORPUSCULAR HGB CONC 33 g/dL (33-37); MEAN CORPUSCULAR VOLUME 90.1 fL (80-94); MONOCYTES # (AUTO) 0.7 K/uL (0.8-1.0); NEUTROPHILS # (AUTO) 6.5 K/uL (1.8-7.7); NEUTROPHILS % (AUTO) 71.7 % (42.2-75.2); PLATELET COUNT (AUTO) 255 K/uL (140-450); RED BLOOD CELL COUNT(AUTO) 3.54 MIL/uL (4.20-5.40); RED CELL DISTRIBUTION WIDTH 13.4 % (11.6-13.7); WHITE BLOOD COUNT (AUTO) 9.1 K/uL (4.8-10.8)
--- NOTE | 2018-02-28 07:30 | NUR ---
ENDORSED PT TO DAY SHIFT NURSE. PT IN STABLE CONDITION.
--- NOTE | 2018-02-28 07:30 | NUR ---
RECEIVED PT AAOX4. NO SOB NOTED. NO C/O PAIN AT THIS TIME. IV TO LT AC PATENT AND INTACT. CHEST, DIMINISHED AIR ENTRY TO THE BASES, OTHERWISE CLEAR. ABDOMEN SOFT, BOWEL SOUNDS PRESENT. WITH ABDOMINAL SURGICAL INCISION NOTED, S/P OPEN REPAIR MULTIPLE VENTRAL HERNIAS 02/25/2018, DRESSING DRY AND INTACT. LT LEFT ABD ESTELA DRAIN WITH SMALL AMOUNTS OF SEROSANG DRAINAGE. DRESSING TO RT UPPER BACK CHRONIC WOUND DRY AND INTACT. INSTRUCTED PT TO CALL FOR ASSISTANCE, CALL LIGHT WITHIN REACH, PT VERBALIZED UNDERSTANDING.
[2018-02-28 07:49] LABS: ANION GAP 12.4 (8-16); CARBON DIOXIDE 26.8 mmol/L (21-32); CREATININE 0.6 mg/dL (0.6-1.3); POTASSIUM 3.2 mmol/L (3.5-5.1)
[2018-02-28 08:00] VITALS: BP 130/68
[2018-02-28] MEDS: oxyCODONE/APAP 5/325 MG 1 TAB TAB PO PRN (09:18)
[2018-02-28] MEDS: ENOXAPARIN 30 MG/0.3 ML SYR SUBQ SCH (09:20)
[2018-02-28] MEDS ORDERED: ACET-9494 PO (09:25)
--- NOTE | 2018-02-28 10:26 | NUR ---
NAA FONTENOT SPOKE WITH PATIENT BEDSIDE TO INFORM HER OF HER DR'S ORDER FOR HH AND PATIENT STATED SHE'S AGREEABLE. PER PATIENT SHE LIVES WITH HER , SON AND GRANDDAUGHTER AT HOME AND PLANS TO GO BACK THERE UPON DISCHARGE AND THAT HER WILL BE PICKING HER UP FROM THE HOSPITAL. PER PATIENT SHE HAS NO PROBLEMS SCHEDULING HER DR'S APPOINTMENTS AND OBTAINING HER MEDICATIONS. Addendum: 02/28/18 at 1111 by Columba Luis CM PER GARO METCALF, PATIENT'S PCP IS DR ANGELA HEARN PH# [phone] ADDRESS: [address] [place] [id number] [facility] [address] [facility], PATIENT IS SCHEDULED FOR OUTPATIENT FF UP ON MAR 07 2018, 10 AM. DETAILS ABOUT THE OUTPATIENT APPOINTMENT GIVEN TO PATIENT.
[2018-02-28 12:00] VITALS: BP 134/63
[2018-02-28] MEDS ORDERED: ALGINATE DRESSING TP SCH (13:00)
--- NOTE | 2018-02-28 13:20 | NUR ---
DISCHARGE PHOTOS TAKEN AND DOCUMENTED.
--- NOTE | 2018-02-28 14:00 | NUR ---
DISCHARGE INSTRUCTIONS AND PRESCRIPTIONS GIVEN TO PT WHICH VERBALIZED FULL UNDERSTANDING OF THE INSTRUCTIONS GIVEN AND THE NEED TO FOLLOW UP WITH IN 7DAYS. ARM BANDS AND IV REMOVED, CANNULA TIP INTACT. PT WAS INSTRUCTED ON HOW TO EMPTY J-P DRAIN, VERBALIZED UNDERSTANDING.
--- NOTE | 2018-02-28 14:20 | NUR ---
PT WHEELED TO THE PARKING LOT IN STABLE CONDITION. NO COMPLAINTS MADE. PT D/C HOME WITH .
--- NOTE | 2018-02-28 15:37 | NUR ---
02/28/18 RD FOLLOW UP COMPLETED PLEASE REFER TO NUTRITION ASSESSMENT UNDER CARE ACTIVITY FOR ESTIMATED NUTRITIONAL NEEDS. 1. CONTINUE CCHO 60 GM DIET TOLERATED 2. IF PATIENT DOES NOT TOLERATE CCHO DIET DOWNGRADE TO FULL LIQUID DIET. 3. ENCOURAGE PO INTAKE 4. RD TO FOLLOW-UP 2-3 DAYS, HIGH RISK MADELIN ALFARO RD
--- NOTE | 2018-03-01 15:44 | NUR ---
Addendum: Notified er md Simon of prelimiary blood culture results. Er md simon called patient at , Cristian Simon spoke to patient. Per conversation, patient sts she felt better, denies fever, and reports that she isn't on po antibiotics at this time. ER md simon paged [facility] for follow up. Awaiting final blood culture results.
== END 2018-02-28 14:10 | disposition home or self-care (01) | DRG 227 ==
LOC: MED 11:54 → MMU 17:00 → MTU 19:13 → MIC 02-25 23:15 → MTU 02-26 18:50
PROVIDERS: ADMIT Internal Medicine; ATTEND Internal Medicine
PROC: 0WUF0JZ Supplement Abdominal Wall with Synthetic Substitute, Open Approach (ICD-10-PCS; 2018-02-25)
PROC: 0DN80ZZ Release Small Intestine, Open Approach (ICD-10-PCS; principal; 2018-02-25 16:30)
DX: K43.6 Other and unspecified ventral hernia with obstruction, without gangrene (principal); N17.9 Acute kidney failure, unspecified; E83.42 Hypomagnesemia; E11.22 Type 2 diabetes mellitus with diabetic chronic kidney disease; E66.9 Obesity, unspecified; K66.0 Peritoneal adhesions (postprocedural) (postinfection); N18.5 Chronic kidney disease, stage 5; E86.0 Dehydration; I12.0 Hypertensive chronic kidney disease with stage 5 chronic kidney disease or end stage renal disease; Z68.41 Body mass index [BMI] 40.0-44.9, adult; Z80.0 Family history of malignant neoplasm of digestive organs; Z80.49 Family history of malignant neoplasm of other genital organs; Z82.49 Family history of ischemic heart disease and other diseases of the circulatory system; Z83.3 Family history of diabetes mellitus; Z85.01 Personal history of malignant neoplasm of esophagus; Z90.49 Acquired absence of other specified parts of digestive tract; Z79.899 Other long term (current) drug therapy; Z79.84 Long term (current) use of oral hypoglycemic drugs
CPT/HCPCS: 36415; 36600; 71045; 74018; 74021; 80048; 80053; 81001; 82009; 82150; 82803; 82948; 83605; 83690; 83735; 84484; 85025; 85610; 85730; 86886; 86900; 86901; 87040; 87081; 87086; 93005; 96361; 96374; 96375; 97110; 97116; 97530; 99285; A4649; J0330; J1100; J1170; J1650; J1815; J1885; J2001; J2060; J2250; J2270; J2405; J2543; J2704; J3010; J3475; J3480; J3490; J7030; J7060; Q0092

== ENCOUNTER 2021-08-17 10:34 | Emergency (ER) | payer OTHER ==
[~2021-08-17] VITALS: Ht 157.5 cm; Wt 94.1 kg
[~2021-08-17 10:34] MED LIST changes: +AMIT25TA40 PO; +BACL20TA4 PO; +BUS5 PO; -CYCL-405 PO; +DOCU-464 PO; -ELA25 PO; +LOSA100T1 PO; -LOVA10TA27 PO; +METF-1061 PO; -METO25TA PO; -OMEP40EC1 PO; +OXYC-304 PO; -OXYC1TAB PO; +PAX20 PO; +RANI150C PO; -SERT50TA PO; +SIMV10TA1 PO
[2021-08-17 10:44] VITALS: BP 122/56
[2021-08-17] MEDS ORDERED: KETOROLAC 30 MG/ML VIAL IM ONE (11:05)
--- NOTE | 2021-08-17 11:28 | NUR ---
XRAY AT BEDSIDE
--- NOTE | 2021-08-17 11:55 | NUR ---
60/F PRESENTS TO ED WITH C/O RIGHT ARM PAIN S/P FALLING FORWARD HITTING HER ARM ON A BRICK WALL YESTERDAY. SWELLING NOTED TO FOREARM AND HAND, ROM LIMITED DUE TO PAIN. PATIENT DENIES HEAD OR NECK INJURY, DENIES LOC. PATIENT REPORTS ICING ARM, REPORTS TAKING TYLENOL WITH NO RELIEF.
[2021-08-17] MEDS ORDERED: ACET-8386 PO (12:08)
--- NOTE | 2021-08-17 12:16 | NUR ---
splinted pt's right arm using a sugartong. REINA Patricio made aware splint was completed and ready for inspection.
--- NOTE | 2021-08-17 12:19 | NUR ---
REINA Choi approved of [facility] splint. CMS intact prior and after splint placement.
--- NOTE | 2021-08-17 12:26 | NUR ---
Patient discharged with v/s stable. Written and verbal after care instructions ABOUT RADIAL FRACTURE given and explained. Patient alert, oriented and verbalized understanding of instructions. Ambulatory with steady gait. All questions addressed prior to discharge. ID band removed. Patient advised to follow up with PMD. Rx of HYDROCODONE given. Opportunity to ask questions provided and answered.
--- NOTE | 2021-08-17 12:30 | NUR ---
The patient's care was reviewed and supervised by Morelia Christianson RN.
== END 2021-08-17 12:26 | disposition home or self-care (01) ==
LOC: MED 10:34
DX: S52.591A Other fractures of lower end of right radius, initial encounter for closed fracture (principal); E11.9 Type 2 diabetes mellitus without complications; Z79.84 Long term (current) use of oral hypoglycemic drugs; Z79.899 Other long term (current) drug therapy; Z85.01 Personal history of malignant neoplasm of esophagus; Z98.890 Other specified postprocedural states; W01.0XXA Fall on same level from slipping, tripping and stumbling without subsequent striking against object, initial encounter; Y93.89 Activity, other specified; Y92.89 Other specified places as the place of occurrence of the external cause; Y99.8 Other external cause status
CPT/HCPCS: 29125; 73110; 73130; 96372; 99284; J1885; Q0092; 99283